=== PATIENT | female | born 1990 | race Caucasian/White ===

== ENCOUNTER → 2022-06-11 06:32 | Outpatient (CLI) | payer MEDICAID, SELFPAY ==
[2022-06-11 19:33] LABS: Basophils # 0.1 K/mm3 (0-0.2); Basophils % 1.2 % (0.1-2.0); Chloride 104 mmol/L (98-107); Eosinophils # 0.2 K/mm3 (0.0-0.4); Eosinophils % 3.1 % (0.1-12.0); Hematocrit 50.1 % (37.0-47.0); Hemoglobin 15.5 g/dL (12.2-16.2); Lymphocytes # 1.7 K/mm3 (0.7-4.5); Lymphocytes % 24.1 % (10-50); Mean Corpuscular HGB Conc 30.9 g/dL (31.8-35.4); Mean Corpuscular Hemoglobin 31.7 pg (27.0-31.2); Mean Corpuscular Volume 102.5 fl (81-99); Monocytes # 0.5 K/mm3 (0.1-1.0); Monocytes % 6.8 % (1.7-9.3); Neutrophils # 4.6 K/mm3 (1.8-7.8); Neutrophils % 64.7 % (37.0-80.0); Platelet Count 257 K/mm3 (142-424); Potassium 4.4 mmoL/L (3.5-5.1); Red Blood Count 4.89 M/mm3 (4.20-5.40); Red Cell Distribution Width 14.1 % (11.5-17.5); White Blood Count 7.1 K/mm3 (4.8-10.8)
[2022-06-11 19:36] LABS: Alanine Aminotransferase 16 U/L (12-78); Albumin Level 4.8 g/dl (3.5-5.0); Albumin/Globulin Ratio 1.5 (1.1-1.8); Alkaline Phosphatase 92 U/L (38-126); Aspartate Amino Transferase 25 U/L (14-36); Bilirubin,Total 0.5 mg/dl (0.2-1.3); Blood Urea Nitrogen 11 mg/dl (7-17); Calcium 9.3 mg/dl (8.4-10.2); Carbon Dioxide 22 mmol/L (22.0-30.0); Estimated Glomerular Filt Rate 142 ml/min (>60); GFR (African American) 172 ML/MIN (>60); Globulin 3.1 g/dL (1.3-3.2); Glucose 90 mg/dl (74-100); Total Protein,Serum 7.9 g/dl (6.3-8.2)
[2022-06-11 20:39] LABS: Anion Gap 15.4 mEq/L (5-15); Sodium 137 mmol/L (136-145)
[2022-06-13 11:20] LABS: Hepatitis B Surface Antigen Negative (Negative)
[2022-06-14 10:14] LABS: HIV Screen 4th Generation wRfx Non Reactive (Non Reactive)
[2022-06-18 02:38] LABS: ALT (SGPT) P5P 15 IU/L (0-40); Alpha 2-Macroglobulins, Qn 248 mg/dL (110-276); Apolipoprotein A-1 130 mg/dL (116-209); Bilirubin, Total <0.1 mg/dL (0.0-1.2); Fibrosis Score 0.04 (0.00-0.21); GGT 13 IU/L (0-60); Haptoglobin 219 mg/dL (33-278); Necroinflammat Activity Grade A0-No activity (.); Necroinflammat Activity Score 0.03 (0.00-0.17)
[2022-06-18 04:33] LABS: Hep A Ab, Total NEGATIVE; Hep B Core Ab, Total NEGATIVE; Hep B Surface Ab, Qual NEGATIVE; Hepatitis C Antibody NON REACTIVE
== END ==
PROVIDERS: PCP Nurse Practitioner Family; Visit Provider Nurse Practitioner Family
DX: B34.9 Viral infection, unspecified (principal); Z11.4 Encounter for screening for human immunodeficiency virus [HIV]
CPT/HCPCS: 80053; 81596; 85025; 86703; 86704; 86706; 86708; 87340; 87380; 87522; G0432

== ENCOUNTER → 2022-06-29 23:00 | Outpatient (CLI) | payer MEDICAID, SELFPAY | PROVIDERS: PCP Nurse Practitioner Family; Visit Provider Obstetrics & Gynecology | DX: N64.52 Nipple discharge (principal) | CPT/HCPCS: 87075; 87205 ==

== ENCOUNTER → 2022-07-02 13:53 | Outpatient (CLI) | payer MEDICAID, SELFPAY ==
--- NOTE | 2022-07-02 13:53 | US_ITS ---
PROCEDURE INFORMATION: Exam: US Right Breast, Complete Exam date and time: 07/02/2022 2:36 PM Age: 31 years old Clinical indication: Nipple discharge; Right TECHNIQUE: Imaging protocol: Complete ultrasound of all four quadrants of the right breast and the retroareolar regions, including ultrasound of the axilla when performed. COMPARISON: No relevant prior studies available. FINDINGS: Breast: Heterogeneously hypoechoic complicated cystic structures consistent with septated and microcysts clusters are present as follows: 0.8 x 1.1 x 0.6 cm 1 o'clock 3 cm from the nipple 1.3 x 0.6 x 0.9 cm 7 o'clock 4 cm from the nipple 0.7 x 0.5 x 0.3 cm 9 o'clock 4 cm from nipple 0.9 by 0.7 x 0.5 cm 10 o'clock 3 cm from the nipple No suspicious solid or cystic mass is present. No architectural distortion or shadowing is present. No axillary adenopathy is present. IMPRESSION: Several complicated cystic structures are present throughout the right breast. No dominant or morphologically suspicious mass is present. Especially in light of the bilateral nipple discharge, a six-month follow-up ultrasound should be performed to assure stability If nipple discharge is clear or bloody or from a single duct then suspicion should be increased regarding intraductal cancer. If this is the case, MRI should be considered ASSESSMENT: BI-RADS category 3: Probably benign
--- NOTE | 2022-07-02 13:53 | US_ITS ---
PROCEDURE INFORMATION: Exam: US Left Breast, Complete Exam date and time: 07/02/2022 2:46 PM Age: 31 years old Clinical indication: Nipple discharge; Left TECHNIQUE: Imaging protocol: Complete ultrasound of all four quadrants of the left breast and the retroareolar regions, including ultrasound of the axilla when performed. COMPARISON: No relevant prior studies available. FINDINGS: Breast: Heterogeneously hypoechoic complicated cystic structures consistent with septated and microcysts clusters are present as follows: 0.5 x 0.6 x 0.2 cm 12 o'clock 2 cm from the nipple 0.9 x 0.3 x 0.9 cm left 2 o'clock 5 cm from the nipple a 0.9 x 0.9 x 0.5 cm 1 o'clock 3 cm from the nipple 1.4 x 1.5 x 0.8 cm 10 o'clock 3 cm from nipple No suspicious solid or cystic mass is present. No architectural distortion or shadowing is present. No axillary adenopathy is present. IMPRESSION: Several complicated cystic structures are present throughout the left breast. No dominant or morphologically suspicious mass is present. Especially in light of the bilateral nipple discharge, a six-month follow-up ultrasound should be performed to assure stability If nipple discharge is clear or bloody or from a single duct then suspicion should be increased regarding intraductal cancer. If this is the case, MRI should be considered ASSESSMENT: BI-RADS category 3: Probably benign
== END ==
PROVIDERS: PCP Nurse Practitioner Family; Visit Provider Obstetrics & Gynecology
DX: N64.52 Nipple discharge (principal)
CPT/HCPCS: 76641

== ENCOUNTER 2022-08-04 09:28 | Emergency (ER) | payer MEDICAID, SELFPAY ==
[2022-08-04 09:35] VITALS: BP 99/44; PULSE 83; RESP 18; TEMP 36.6; O2SAT 98; BMI 26.8
--- NOTE | 2022-08-04 09:44 | EXP.UTC ---
Discharge Plan Disposition Patient Disposition: Home, Self-Care Condition: Good Prescriptions Prescriptions: New clindamycin HCl 300 mg capsule 300 mg PO Q8H 7 Days Qty: 21 0RF mupirocin 2 % ointment 1 applic topical TID 10 Days Qty: 22 0RF Rx Instructions: apply to area as directed Referrals Follow up/Referrals: Vitaliy Don APRN [Primary Care Provider] - See instructions Activity Restrictions/Add. Instructions Additional Instructions/Restrictions: Soak hand in warm water and epson salt 3-4 times daily Take medication as prescribed Apply topical antibiotic around finger nail and finger as prescribed Return if needed Make sure to get an Probiotic and take with your antibiotic and eat yogurt to help with stomach upset Clinical Impressions Clinical Impression: Infected finger Instructions Patient Instructions: DI for Puncture Wound, Clindamycin, Acidophilus and Other Probiotics (Alternative Therapy) Discharge ED Provider: Mala Lyn [facility] [place] [facility] [place] General Stated complaint: pain in Rt middle finger, swollen Mode of Arrival: Ambulatory Source of Information: Patient Limitations: No Limitations Time Seen by Provider: 08/04/22 09:44 Description of Symptoms (Recalled from Triage Doc. by RN): PATIENT STATES SHE WAS DOING YARD WORK YESTERDAY AND A LARGE THORN FROM A TREE POKED HER IN THE LEFT MIDDLE FINGER AND TODAY THAT FINGER IS SWOLLEN HEENT Symptoms (Recalled from RN notes): No Resp Symptoms (Recalled from RN notes): No Skin Symptoms (Recalled from RN notes): No MS Symptoms (Recalled from RN notes): No Functional Status (Recalled from RN notes): WNL History of Present Illness Provider Complaint: Patient states that she was working outside yesterday when a large throat poked her in her left middle finger just under her cuticle area States that she pulled the thorn out and today she woke up with her middle finger swollen and sore thinks it may be infected so she came in Related Data Previous Rx's Medication Instructions Recorded clindamycin HCl 300 mg capsule 300 mg PO Q8H 7 days #21 caps 08/04/22 mupirocin 2 % topical ointment 1 applic topical TID 10 days #22 08/04/22 grams Allergies Allergy/AdvReac Type Severity Reaction Status Date / Time No Known Allergies Allergy Verified 06/29/22 13:59 Worker's Comp Is this a Worker's Comp case?: No [facility] Disclaimer: The information contained in this section may have been updated after the patient was seen, as this information can be updated by other users. Medical History Bite from insect right lower leg Cellulitis right lower leg History of drug abuse Menorrhagia Nipple discharge in female No acute medical problems Surgical History History of Social History Smoking Status: Current every day smoker alcohol intake: never substance use type: marijuana and methamphetamine current occupational status: employed Travel in the last 8 weeks: Inside the [place] ROS Obtained: Yes All systems reviewed & no additional complaints except as documented and Yes Systems reviewed as appropriate & no additional complaints except as documented Constitutional Constitutional: Reports system reviewed and no additional complaints, except as documented and Reports as per HPI ENT Ears, Nose, Mouth, and Throat: Reports system reviewed and no additional complaints, except as documented and Reports as per HPI Cardiovascular Cardiovascular: Reports system reviewed and no additional complaints, except as documented and Reports as per HPI Respiratory Respiratory: Reports system reviewed and no additional complaints, except as documented and Reports as per HPI Gastrointestinal Gastrointestingal: Reports system reviewed and no additional complaints, except as documented and as
[2022-08-04 09:50] VITALS: BP 114/59
[2022-08-04 09:57] VITALS: BP 114/59; PULSE 83; RESP 18; TEMP 36.6; O2SAT 98
[2022-08-04 09:57] LABS: UTC Pregnancy Test, Urine Negative (Negative)
== END 2022-08-04 10:01 | disposition home or self-care (01) ==
PROVIDERS: Emergency Provider Nurse Practitioner; PCP Nurse Practitioner Family
DX: S61.233A Puncture wound without foreign body of left middle finger without damage to nail, initial encounter (principal); L08.9 Local infection of the skin and subcutaneous tissue, unspecified; F17.210 Nicotine dependence, cigarettes, uncomplicated; W60.XXXA Contact with nonvenomous plant thorns and spines and sharp leaves, initial encounter
CPT/HCPCS: 81025; 99204; 99212; G0463

== ENCOUNTER 2024-06-11 18:48 | Outpatient (CLI) | payer MEDICAID, SELFPAY ==
--- NOTE | 2024-06-11 19:35 | XR_ITS ---
PROCEDURE INFORMATION: Exam: XR Left Shoulder Exam date and time: 06/11/2024 7:27 PM Age: 33 years old Clinical indication: Pain; Shoulder; Left; Additional info: Pain with movement after injury 01/05 TECHNIQUE: Imaging protocol: Radiologic exam of the left shoulder. Views: 2 or more views. Total images: 3 COMPARISON: CR XR CLAVICLE LT 06/11/2024 7:26 PM FINDINGS: Bones/joints: Remote fracture deformity midshaft left clavicle. No acute fracture or joint dislocation. Unremarkable joint spaces. Benign sclerotic bone island left humeral head. Subacromial space is preserved. No concerning bone lesions. Soft tissues: Unremarkable soft tissues. IMPRESSION: 1. No acute osseous abnormality. 2. Remote fracture deformity midshaft left clavicle.
--- NOTE | 2024-06-11 19:35 | XR_ITS ---
PROCEDURE INFORMATION: Exam: XR Left Clavicle, Complete Exam date and time: 06/11/2024 7:26 PM Age: 33 years old Clinical indication: Pain; Shoulder; Left; Additional info: Pain in clavicle area, HX FX 01/05 TECHNIQUE: Imaging protocol: Radiologic exam of the left clavicle. Complete exam. Views: Any number of views. Total images: 2 COMPARISON: No relevant prior studies available. FINDINGS: Bones/joints: Remote midshaft left clavicular fracture deformity. No acute fracture or joint dislocation. Unremarkable AC joint. Benign sclerotic bone island left humeral head. Unremarkable glenohumeral joint. Lungs: Left lung apex is clear. Soft tissues: Unremarkable soft tissues. IMPRESSION: Remote fracture deformity midshaft left clavicle.
== END 2024-06-11 23:59 | disposition home or self-care (01) ==
LOC: RAD 18:51
PROVIDERS: PCP Nurse Practitioner Family; Visit Provider Nurse Practitioner
DX: M25.512 Pain in left shoulder (principal); M89.8X1 Other specified disorders of bone, shoulder
CPT/HCPCS: 73000; 73030

== ENCOUNTER 2024-06-27 16:50 | Outpatient (CLI) | payer MEDICAID, SELFPAY ==
[2024-06-27 20:35] LABS: Coronavirus 19, PCR Not Detected (NotDetected); Influenza A, PCR Not Detected (NotDetected); Influenza B, PCR Not Detected (NotDetected)
== END 2024-06-27 23:59 | disposition home or self-care (01) ==
LOC: LAB.DROPOF 06-28 12:43
PROVIDERS: PCP Student in an Organized Health Care Education/Training Program; Visit Provider Student in an Organized Health Care Education/Training Program
DX: R52 Pain, unspecified (principal)
CPT/HCPCS: 87636